=== PATIENT | female | born 1985 | race Asian ===

== ENCOUNTER 2017-10-14 14:50 | Emergency (ER) | payer OTHER ==
[~2017-10-14] VITALS: Ht 162 cm; Wt 72.6 kg
[2017-10-14] MEDS ORDERED: AMOX500C PO (15:46)
--- NOTE | 2017-10-14 15:47 | PHYS DOC ---
Adult General Chief Complaint Chief Complaint: SORE THROAT HPI HPI Patient is a 32 year old female who presents with sore throat. Patient complains of fever with sore throat and general malaise for the last several days. Patient states she currently is on her menstrual period and has no other acute complaints at this time. She states she had a fever at home greater than 101 yesterday. Review of Systems Review of Systems Constitutional: Denies fever or chills [] Eyes: Denies change in visual acuity, redness, or eye pain [] HENT: Denies nasal congestion positive for sore throat [] Respiratory: Denies cough or shortness of breath [] Cardiovascular: No additional information not addressed in HPI [] GI: Denies abdominal pain, nausea, vomiting, bloody stools or diarrhea [] : Denies dysuria or hematuria [] Musculoskeletal: Denies back pain or joint pain [] Integument: Denies rash or skin lesions [] Neurologic: Denies headache, focal weakness or sensory changes [] Endocrine: Denies polyuria or polydipsia [] All other systems were reviewed and found to be within normal limits, except as documented in this note. Current Medications Current Medications Current Medications Medications (Trade) Dose Ordered Sig/Maeve Start Time Stop Time Status Last Admin Dose Admin Amoxicillin (Amoxil) 500 mg 1X ONCE 10/14/17 16:00 10/14/17 16:01 Allergies Allergies Allergies Coded Allergies Type Severity Reaction Last Updated Verified No Known Drug Allergies 10/14/17 No Physical Exam Physical Exam Constitutional: Well developed, well nourished, no acute distress, non-toxic appearance. [] HENT: Normocephalic, atraumatic, bilateral external ears normal, oropharynx moist, no oral exudates, nose normal. [] Eyes: PERRLA, EOMI, conjunctiva normal, no discharge. [] Neck: Normal range of motion, no tenderness, supple, no stridor. [] Cardiovascular:Heart rate regular rhythm, no murmur [] Lungs & Thorax: Bilateral breath sounds clear to auscultation [] Abdomen: Bowel sounds normal, soft, no tenderness, no masses, no pulsatile masses. [] Skin: Warm, dry, no erythema, no rash. [] Back: No tenderness, no CVA tenderness. [] Extremities: No tenderness, no cyanosis, no clubbing, ROM intact, no edema. [] Neurologic: Alert and oriented X 3, normal motor function, normal sensory function, no focal deficits noted. [] Psychologic: Affect normal, judgement normal, mood normal. [] Current Patient Data Lab Results Laboratory Tests Test 10/14/17 15:17 Group A Streptococcus Rapid Negative (NEGATIVE) EKG EKG [] Radiology/Procedures Radiology/Procedures [] Course & Med Decision Making Course & Med Decision Making Pertinent Labs and Imaging studies reviewed. (See chart for details) [] Dragon Disclaimer Dragon Disclaimer This electronic medical record was generated, in whole or in part, using a voice recognition dictation system. Departure Departure: Impression: Primary Impression: Pharyngitis Disposition: HOME, SELF-CARE Condition: STABLE Referrals: EMILY GÓMEZ MD (PCP) Patient Instructions: Viral and Bacterial Pharyngitis, [id number] Scripts Amoxicillin (AMOXICILLIN) 500 Mg Capsule 1 CAP PO TID, #30 CAP Prov: PARUL MILAN MD 10/14/17 PARUL MILAN MD Oct 14, 2017 15:47
[2017-10-14 15:56] VITALS: BP 121/65
[2017-10-14] MEDS ORDERED: AMOXICILLIN 250 MG CAPSULE PO ONE (16:00)
== END 2017-10-14 15:57 | disposition home or self-care (01) ==
LOC: ER 14:50
DX: J02.9 Acute pharyngitis, unspecified (principal)
CPT/HCPCS: 87070; 87880; 99284

== ENCOUNTER → 2019-02-10 | Outpatient (CLI) | payer OTHER ==
[~2019-02-10] MED LIST: AMOX500C PO
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
== END | disposition home or self-care (01) ==
LOC: EDBD → PMG 14:31
PROVIDERS: ATTEND Registered Nurse
DX: S62.633A Displaced fracture of distal phalanx of left middle finger, initial encounter for closed fracture (principal); X58.XXXA Exposure to other specified factors, initial encounter; Y93.89 Activity, other specified; Y92.89 Other specified places as the place of occurrence of the external cause; Y99.8 Other external cause status
CPT/HCPCS: 73140

== ENCOUNTER 2019-03-06 16:53 | Emergency (ER) | payer OTHER ==
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
[2019-03-06 18:54] VITALS: BP 136/85
[2019-03-06 19:53] LABS: BARBITURATES NEG (NEG); BENZODIAZEPINES NEG (NEG); CANNABINOIDS NEG (NEG); COCAINE NEG (NEG); METHADONE NEG (NEG); OPIATES NEG (NEG); PHENCYCLIDINE NEG (NEG)
[2019-03-06 19:54] LABS: AMPHETAMINE/METHAMPHETAMINE NEG (NEG)
[2019-03-06 20:19] LABS: COLOR,URINE YELLOW
[2019-03-06 20:20] LABS: BACTERIA,URINE 0 /HPF (0-FEW); BILIRUBIN,URINE NEG (NEG); CLARITY,URINE HAZY; GLUCOSE,URINE NEG (NEG); NITRITE,URINE NEG (NEG); RBC,URINE 0 /HPF (0-2); SQUAMOUS EPITHELIAL CELL,UR MOD /LPF; UROBILINOGEN,URINE 0.2 mg/dL (0.2 mg/dL); WBC,URINE OCC /HPF (0-4)
== END 2019-03-06 19:32 | disposition left against medical advice (07) ==
LOC: ER 16:53
DX: T76.21XA Adult sexual abuse, suspected, initial encounter (principal)
CPT/HCPCS: 36415; 80307; 81001; 81025; 99284